=== PATIENT | female | born 1970 | race Caucasian/White ===

== ENCOUNTER 2024-07-16 12:05 | Outpatient (CLI) | payer OTHER, SELFPAY ==
[2024-07-16 12:38] LABS: Basophils Absolute Auto 0.04 K/mm3 (0.00-0.10); Basophils Percent Auto 0.6 % (0.0-1.0); Eosinophils Absolute Auto 0.32 K/mm3 (0.02-0.50); Eosinophils Percent Auto 5.1 % (1.0-6.0); Hemoglobin 11.8 g/dL (12.0-15.0); Immature Granulocyte Absolute 0.01 K/mm3 (0.00-0.00); Immature Granulocyte Percent A 0.2 % (0.0-0.0); Lymphocytes Absolute Auto 1.94 K/mm3 (1.10-4.50); Lymphocytes Percent Auto 31.1 % (18.0-42.0); Mean Corpuscular HGB Conc 31.9 g/dL (32-36); Mean Corpuscular Hemoglobin 24.5 pg (27.0-31.0); Mean Corpuscular Volume 76.9 fL (78.0-102.0); Mean Platelet Volume 9.3 fl (9.2-11.8); Monocytes Absolute Auto 0.39 K/mm3 (0.10-0.90); Monocytes Percent Auto 6.3 % (2.0-11.0); Neutrophils Absolute Auto 3.53 K/mm3 (1.70-7.20); Neutrophils Percent Auto 56.7 % (50.0-70.0); Platelet Count Result 339 K/mm3 (150-420); Red Blood Count 4.81 M/mm3 (4.20-5.40); White Blood Count 6.2 K/mm3 (4.8-10.8)
[2024-07-16 12:39] LABS: Alanine Aminotransferase 23 U/L (14-59); Albumin Level 3.5 g/dL (3.4-5.0); Alkaline Phosphatase 69 U/L (46-116); Anion Gap 7 mmol/L (4-12); Aspartate Amino Transferase 21 U/L (15-37); Bilirubin,Total 0.4 mg/dL (0.00-1.00); Blood Urea Nitrogen 12 mg/dL (7-18); Calcium 9.2 mg/dL (8.5-10.1); Carbon Dioxide 30 mmol/L (21-32); Chloride 101 mmol/L (98-108); Estimated Glomerular Filt Rate > 60; Glucose 100 mg/dL (70-99); Iron 38 ug/dL (50-170); Osmolality Calculated 285 mOsm/kg (285-295); Percent Iron Saturation 10 % (12-57); Potassium 3.5 mmol/L (3.5-5.1); Sodium 138 mmol/L (136-145); Total Protein 7.2 g/dL (6.4-8.2)
[2024-07-16 12:43] LABS: Troponin I < 4.0 ng/L (0.00-60.4)
== END 2024-07-16 12:06 | disposition home or self-care (01) ==
LOC: CHSLAB 12:08
PROVIDERS: PCP Nurse Practitioner Family; Visit Provider Nurse Practitioner Family
DX: D64.9 Anemia, unspecified (principal); R42 Dizziness and giddiness
CPT/HCPCS: 36415; 80053; 83540; 83550; 84484; 85025

== ENCOUNTER 2024-07-24 10:02 | Outpatient (CLI) | payer OTHER, SELFPAY ==
--- NOTE | 2024-07-24 10:20 | PC.NURSE ---
Here for OP infusion
[2024-07-24 10:34] VITALS: BMI 30.9
[2024-07-24 10:45] VITALS: BP 121/90; PULSE 97; RESP 18; TEMP 36.1
[2024-07-24] MEDS: IRON SUCROSE COMPLEX 300 MG in SODIUM CHLORIDE 0.9% IV 250 ML 125 MG IVPB (10:50)
[2024-07-24 13:00] VITALS: BP 120/83; PULSE 94; RESP 18; TEMP 36.1
--- NOTE | 2024-07-24 13:11 | PC.NURSE ---
discharge home, no complaints, tolerated infusion well, saline lock removed intact, given ecucation on iron infusion, no questions upon discharge home
== END 2024-07-24 10:03 | disposition home or self-care (01) ==
PROVIDERS: PCP Nurse Practitioner Family; Visit Provider Nurse Practitioner Family
DX: D50.9 Iron deficiency anemia, unspecified (principal)
CPT/HCPCS: 96365; 96366; J1756; J7050

== ENCOUNTER 2024-08-02 10:24 | Outpatient (CLI) | payer OTHER, SELFPAY ==
[2024-08-02 10:45] VITALS: BP 132/97; PULSE 78; RESP 16; TEMP 36; O2SAT 100; BMI 30.2
--- NOTE | 2024-08-02 11:00 | PC.NURSE ---
Patient here for IV venofer. Tolerated IV start well, sitting up in chair resting. Call light and belongings provided. Pharmacy aware patient is here, working on medication.
[2024-08-02] MEDS: IRON SUCROSE COMPLEX 300 MG in SODIUM CHLORIDE 0.9% IV 250 ML 125 MG IVPB (11:22)
--- NOTE | 2024-08-02 13:25 | PC.NURSE ---
Patient tolerated IV Infusion well. No adverse reactions noted. IV site removed, tip intact. Dressing applied to site. Patient denies any questions at discharge, left floor ambulatory.
== END 2024-08-02 13:35 | disposition home or self-care (01) ==
PROVIDERS: PCP Nurse Practitioner Family; Visit Provider Nurse Practitioner Family
DX: D50.9 Iron deficiency anemia, unspecified (principal)
CPT/HCPCS: 96365; 96366; J1756; J7050

== ENCOUNTER 2024-08-08 09:41 | Outpatient (CLI) | payer OTHER, SELFPAY ==
[2024-08-08 09:56] LABS: Basophils Absolute Auto 0.05 K/mm3 (0.00-0.10); Basophils Percent Auto 0.8 % (0.0-1.0); Eosinophils Absolute Auto 0.25 K/mm3 (0.02-0.50); Eosinophils Percent Auto 4.2 % (1.0-6.0); Hematocrit 38.7 % (35.0-49.0); Hemoglobin 12.6 g/dL (12.0-15.0); Immature Granulocyte Absolute 0.01 K/mm3 (0.00-0.00); Immature Granulocyte Percent A 0.2 % (0.0-0.0); Lymphocytes Absolute Auto 1.61 K/mm3 (1.10-4.50); Lymphocytes Percent Auto 27.1 % (18.0-42.0); Mean Corpuscular HGB Conc 32.6 g/dL (32-36); Mean Corpuscular Hemoglobin 25.7 pg (27.0-31.0); Mean Platelet Volume 9.3 fl (9.2-11.8); Monocytes Absolute Auto 0.26 K/mm3 (0.10-0.90); Monocytes Percent Auto 4.4 % (2.0-11.0); Neutrophils Absolute Auto 3.77 K/mm3 (1.70-7.20); Neutrophils Percent Auto 63.3 % (50.0-70.0); Platelet Count Result 302 K/mm3 (150-420); Red Cell Distribution Width 19.7 % (11.6-14.4)
[2024-08-08 10:23] LABS: Iron 86 ug/dL (50-170); Percent Iron Saturation 25 % (12-57)
== END 2024-08-08 09:42 | disposition home or self-care (01) ==
PROVIDERS: PCP Nurse Practitioner Family; Visit Provider Nurse Practitioner Family
DX: D64.9 Anemia, unspecified (principal)
CPT/HCPCS: 36415; 83540; 83550; 85025

== ENCOUNTER 2024-08-13 09:48 | Outpatient (CLI) | payer OTHER, SELFPAY ==
--- NOTE | ~2024-08-13 | MM_ITS ---
EXAMINATION: MM screening emili BI w trina HISTORY: Screening mammogram TECHNIQUE: Craniocaudal and mediolateral oblique 3-D tomosynthesis images were obtained and synthetic 2-D images were generated. CAD analysis was submitted and interpreted. COMPARISON: 06/15/2021 BREAST PARENCHYMAL COMPOSITION:Not Dense. There are scattered areas of fibroglandular density. FINDINGS: No suspicious mass, calcification, or architectural distortion are identified in either forest ast to suggest malignancy. There has been no suspicious interval change. IMPRESSION: No mammographic evidence of malignancy. Recommend routine screening mammography in one year. BI-RADS Category 1: Negative Reviewed, dictated and finalized at location . IOLOGY ASSOCIATE
== END 2024-08-13 09:49 | disposition home or self-care (01) ==
PROVIDERS: PCP Nurse Practitioner Family; Visit Provider Nurse Practitioner Family
DX: Z12.31 Encounter for screening mammogram for malignant neoplasm of breast (principal)
CPT/HCPCS: 77063; 77067

== ENCOUNTER 2024-10-25 12:55 | Outpatient (CLI) | payer OTHER, SELFPAY ==
--- NOTE | ~2024-10-25 | US_ITS ---
US pelvic complete w TV Ordering provider: Toshia Campos APRN History: . N92.0 - Excessive and frequent menstruation with regular ... . Comparison: None. Technique: Transabdominal and endovaginal ultrasound of the pelvis (Doppler ultrasound interrogation techniques used as needed for this exam.) FINDINGS: CERVIX: Normal. UTERUS: Measures 8.8x 4.5x 4.1 cm in length which is within normal limits and is anteverted. No myom etrial masses. ENDOMETRIUM: Normal in thickness measuring 8.1 mm. No endometrial masses, cysts or fluid. CUL DE SAC: No free fluid. RIGHT OVARY: Normal in size measuring 2.7x 1.7x 1.7 cm. Normal echotexture. Doppler vascular flow pre sent. Calcification is seen inside the ovary measuring 4 x 3 mm.. LEFT OVARY: Not demonstrated. ADNEXA: Normal. No mass. IMPRESSION: Calcification in the right ovary most likely benign. The left is not demonstrated. Otherwise, normal pelvic ultrasound. Reviewed, dictated and finalized at location A. IMPRESSION: Calcification in the right ovary most likely benign. The left is not demonstrat ed. Otherwise, normal pelvic ultrasound.
--- OUTSIDE RECORDS SUMMARY | 2024-10-25 13:00 | XMS_ITS | Encounter Summary ---
Author Organization [facility] Address [address] [place] [address] Care Team Providers Care Welding Foreman Name Role Phone Abiodun Cifuentes MD Primary Care Provider [phone] Encounter Details Date Type Department Care Team (Late st Contact Info) Description 09/13/2022 Silver Lining Solutionst Message Enc [facility] [address], [facility] 1 [place] [address] Fabiano Mckenzie MD [address] [place] [address] Visit Follow Up Social History Tobacco Use Types Packs/Day Years Used Date Smoking Tobacco: Never Smokeless Tobacco: Never Alcohol Use Standard Drinks/Week Comments Yes 0 (1 standard drink = 0.6 oz pur e alcohol) Comments Unknown Sex and Gender Information Value Date Recorded Sex Assigned at Not on file Legal Sex Female 5:53 PM CDT Gender Identity Not on file Sexual Orientation Not on file COVID-19 Exposure Response Date Recorded In the last 10 days, have yo u been in contact with someone who was confirmed or suspected to have Coronavirus/COVID-19? No / Unsure 09/13/2022 2:32 PM BALANCE TRUING INSPECTOR documented as of this encounter Plan of Treatment Not on file documented as of this encounter Visit Diagnoses Not on filedocumented in this encounter Care Teams Welding Foreman Relationship Specialty Start [place] [address] [place] [address] [place] [address] PCP - General FAMILY PRACTICE 08/24/22 documented as of this encounter
--- OUTSIDE RECORDS SUMMARY | 2024-10-25 13:00 | XMS_ITS | Clinical Summary ---
Author Organization [facility] Address [address] [address] [place] [address] Phone Care Team Providers Care Optical Engineering Technician Name Role Phone [facility], External Provider Primary Care Provider U navailable Social History Tobacco Use Types Packs/Day Years Used Date Smoking Tobacco: Never Assessed Comments Unknown Sex and Gender Information Value Date Recorded Sex Assigned at Not on file Legal Sex Female 4:12 AM ABORIGINAL LIAISON OFFICER Gender Identity Not on file Sexual Orientation Not on file Plan of Treatment Health Maintenance Due Date Last Done Comments DTAP/TDAP/TD VACCINES (1 - Tdap) 1991 HEPATITIS B VACCINES (1 of 3 - 19+ 3-dose series) 1991 CERVICAL CANCER SCREENING 2002 BREAST CANCER SCREENING 2012 COLORECTAL SCREENING 2017 Colorectal Cancer Screening 2017 FIT-DNA Q 3 years 2017 FIT/FOBT Q 1 year 2017 Flex Sig/CT Colonography Q 5 years 2017 ZOSTER VACCINE (1 of 2) 2022 INFLUENZA VACCINE (#1) 2024 PNEUMOCOCCAL VACCINE 0-49 YEARS Aged Out No longer eligible based on patient's age to complete this topic Insurance [facility] [id number] Care Teams Optical Engineering Technician Relationship Specialty Start Date End Date [facility], External Provider [address] [place] [address] PCP - General 02/25/14
--- OUTSIDE RECORDS SUMMARY | 2024-10-25 13:00 | XMS_ITS | Encounter Summary ---
Author Organization [facility] Address [address] [place] [address] Care Team Providers Care Program Schedule Clerk Name Role Phone Abiodun Cifuentes MD Primary Care Provider [phone]- [phone] Encounter Details Date Type Department Care Team (Late st Contact Info) Description 01/19/2019 Abstract SFL CONVERSION [address] [place] [address] , Generic Conversion, Social History Tobacco Use Types Packs/Day Years Used Date Smoking Tobacco: Never Assessed Comments Unknown Sex and Gender Information Value Date Recorded Sex Assigned at Not on file Legal Sex Female 5:53 PM CDT Gender Identity Not on file Sexual Orientation Not on file documented as of this encounter Plan of Treatment Not on file documented as of this encounter Visit Diagnoses Not on filedocumented in this encounter Care Teams Program Schedule Clerk Relationship Specialty Start Date End Date Abiodun Cifuentes MD [address] [place] [id number] PCP - General FAMILY PRACTICE 08/24/22 documented as of this encounter
--- OUTSIDE RECORDS SUMMARY | 2024-10-25 13:00 | XMS_ITS | Clinical Summary ---
Author Organization [facility] Address [facility] [place] [address] Care Team Providers Care Ip Architect Name Role Phone Abiodun Cifuentes MD Primary Care Provider [phone] [phone] Allergies Active Allergy Reactions Criticality Noted Date Comments Nitrofurantoin Rash Low 06/24/2016 Medications chlorthalidone (HYGROTEN) 25 MG tablet Take 1 tablet by mouth daily. 04/14/2022 Active clonazePAM (KLONOPIN) 0.5 MG tablet Take 1 tablet by mouth as needed. 05/19/2022 Active irbesartan (AVAPRO) 300 MG tablet Take 1 tablet by mouth daily. 08/26/2022 Active metoprolol tartrate (LOPRESSOR) 50 MG tablet Take 1 tablet by mouth daily. 08/26/2022 Active Active Problems Problem Noted Date Diagnosed Date Trochanteric bursitis, right hip 09/13/2022 Family History Medical History Relation Comments Arthritis Father Diabetes Father Hypertension Father COPD Mother Relation Status Comments Father Mother Social History Tobacco Use Types Packs/Day Years Used Date Smoking Tobacco: Never Smokeless Tobacco: Never Alcohol Use Standard Drinks/Week Comments Yes 0 (1 standard drink = 0.6 oz pur e alcohol) Comments Unknown Sex and Gender Information Value Date Recorded Sex Assigned at Not on file Legal Sex Female 5:53 PM CDT Gender Identity Not on file Sexual Orientation Not on file Last Filed Vital Signs Vital Sign Reading Time Taken Comments Blood Pressure 157/114 06/24/2016 1:59 PM EMPLOYEE BENEFITS MANAGER Pulse 76 06/24/2016 1:59 PM EMPLOYEE BENEFITS MANAGER Temperature - - Respiratory Rate - - Oxygen Saturation - - Inhaled Oxygen Concentration - - Weight 77.1 kg (170 lb) 09/13/2022 2:34 PM EMPLOYEE BENEFITS MANAGER Height 154.9 cm (5' 1 ) 09/13/2022 2:34 PM EMPLOYEE BENEFITS MANAGER Body Mass Index 32.12 09/13/2022 2:34 PM EMPLOYEE BENEFITS MANAGER Plan of Treatment Health Maintenance Due Date Last Done Comments Cervical Cancer Screening Pap Smear (Age 30 to 64) Every 3 Years 1972 Colorectal Cancer Screening Colonoscopy (10 Years) 1972 Annual Physical 1975 Hepatitis C 1990 Hepatitis B Vaccines (1 of 3 - 19+ 3-dose series) 1991 Cervical Cancer Screening Pap with HPV Testing (Age 30 to 64) Every 5 Years 2002 Cervical Cancer Screening with HPV 2002 Mammogram Screening 2012 Zoster Vaccines (1 of 2) 2022 DTaP, Tdap and Td Vaccines (2 - Td or Tdap) 03/21/2023 03/21/2013 COVID-19 Vaccine ( season) 2024 12/13/2021, 09/01/2020, 08/11/2020 Influenza Adult (#1) 2024 04/23/2018, 04/30/2015, 03/18/2014, Additional history exists Meningococcal B Vaccine Aged Out No l onger eligible based on patient's age to complete this topic Meningococcal Vaccine Aged Out No aicha sheyla eligible based on patient's age to complete this topic Pneumococcal Vaccine: Pediatrics (0 to 5 Years) and At-Risk Patients (6 to 64 Years) Aged Out No longer eligible based on patient's age to complete this topic RSV Immunizations Under 20 Months Aged Out No longer eligible based on patient's age to complete this topic Insurance [facility] Care Teams Ip Architect Relationship Specialty Start [place] [address] [place] [address] [place] [address] PCP - General FAMILY PRACTICE 08/24/22
== END 2024-10-25 12:56 | disposition home or self-care (01) ==
LOC: CHSIMG 12:56
PROVIDERS: PCP Nurse Practitioner Family; Visit Provider Nurse Practitioner Obstetrics & Gynecology
DX: N92.0 Excessive and frequent menstruation with regular cycle (principal); N83.8 Other noninflammatory disorders of ovary, fallopian tube and broad ligament
CPT/HCPCS: 76830; 76856

== ENCOUNTER 2024-10-30 10:08 | Outpatient (CLI) | payer OTHER, SELFPAY ==
--- OUTSIDE RECORDS SUMMARY | 2024-10-30 11:30 | XMS_ITS | Encounter Summary ---
Author Organization [facility] Address [address] [place] [address] Care Team Providers Care Bench Worker Apprentice Name Role Phone Abiodun Cifuentes MD Primary Care Provider Encounter Details Date Type Department Care Team (Late st Contact Info) Description 09/13/2022 MobileSnackt Message Enc [facility] [address], [facility] 1 [place] [address] Fabiano Mckenzie MD [address] [place] [address] Visit Follow Up Social History Tobacco [...] Coronavirus/COVID-19? No / Unsure 09/13/2022 2:32 PM ORGAN INSTALLER documented as of this encounter Plan of Treatment Not on file documented as of this encounter Visit Diagnoses Not on filedocumented in this encounter Care Teams Bench Worker Apprentice Relationship Specialty Start [place] [address] [place] [address] [place] [address] PCP - General FAMILY PRACTICE 08/24/22 documented as of this encounter
--- OUTSIDE RECORDS SUMMARY | 2024-10-30 11:30 | XMS_ITS | Encounter Summary ---
Author Organization [facility] Address [address] [place] [address] Care Team Providers Care Professional Volleyball Player Name Role Phone Abiodun Cifuentes MD Primary Care Provider [phone]- [phone] Encounter Details Date Type Department Care Team (Late st Contact Info) Description 01/19/2019 Abstract SFL CONVERSION [address] [place] [address] , Generic Conversion, Social History Tobacco Use [...] on filedocumented in this encounter Care Teams Professional Volleyball Player Relationship Specialty Start Date End Date Abiodun Cifuentes MD [address] [place] [phone] PCP - General FAMILY PRACTICE 08/24/22 documented as of this encounter
--- OUTSIDE RECORDS SUMMARY | 2024-10-30 11:30 | XMS_ITS | Clinical Summary ---
Author Organization [facility] Address [facility] [place] [address] Care Team Providers Care Hairspring Adjuster Name Role Phone Abiodun Cifuentes MD Primary Care Provider [phone] [phone] Allergies Active Allergy Reactions Criticality Noted Date [...] Comments Blood Pressure 157/114 06/24/2016 1:59 PM PRODUCTION SUPERVISOR OFF SHIFT Pulse 76 06/24/2016 1:59 PM PRODUCTION SUPERVISOR OFF SHIFT Temperature - - Respiratory Rate - - Oxygen Saturation - - Inhaled Oxygen Concentration - - Weight 77.1 kg (170 lb) 09/13/2022 2:34 PM PRODUCTION SUPERVISOR OFF SHIFT Height 154.9 cm (5' 1 ) 09/13/2022 2:34 PM PRODUCTION SUPERVISOR OFF SHIFT Body Mass Index 32.12 09/13/2022 2:34 PM PRODUCTION SUPERVISOR OFF SHIFT Plan of Treatment Health Maintenance Due Date [...] patient's age to complete this topic Insurance [facility] Care Teams Hairspring Adjuster Relationship Specialty Start [place] [address] [place] [address] [place] [address] PCP - General FAMILY PRACTICE 08/24/22
--- OUTSIDE RECORDS SUMMARY | 2024-10-30 11:30 | XMS_ITS | Clinical Summary ---
Author Organization [facility] Address [address] [address] [place] [address] Phone Care Team Providers Care Apparel Embroidery Digitizer Name Role Phone [facility], External Provider Primary Care Provider U navailable Social History Tobacco Use Types Packs/Day Years Used Date Smoking Tobacco: Never Assessed Comments Unknown Sex and Gender Information Value Date Recorded Sex Assigned at Not on file Legal Sex Female 4:12 AM HOT MILL SHEARER Gender Identity Not on file Sexual Orientation [...] patient's age to complete this topic Insurance [facility] [id number] Care Teams Apparel Embroidery Digitizer Relationship Specialty Start Date End Date [facility], External Provider [address] [place] [address] PCP - General 02/25/14
[2024-11-01 04:53] LABS: CA-125 12 U/mL (<35)
== END 2024-10-30 10:09 | disposition home or self-care (01) ==
PROVIDERS: PCP Nurse Practitioner Family; Visit Provider Nurse Practitioner Obstetrics & Gynecology
DX: N83.8 Other noninflammatory disorders of ovary, fallopian tube and broad ligament (principal); R19.09 Other intra-abdominal and pelvic swelling, mass and lump
CPT/HCPCS: 36415; 86304

== ENCOUNTER 2025-02-06 14:36 | Outpatient (CLI) | payer OTHER, SELFPAY ==
[2025-02-06 14:50] LABS: Hematocrit 40.7 % (35.0-49.0); Hemoglobin 13.8 g/dL (12.0-15.0); Mean Corpuscular HGB Conc 33.9 g/dL (32-36); Mean Corpuscular Hemoglobin 29.7 pg (27.0-31.0); Mean Corpuscular Volume 87.5 fL (78.0-102.0); Mean Platelet Volume 8.9 fl (9.2-11.8); Platelet Count Result 300 K/mm3 (150-420); Red Blood Count 4.65 M/mm3 (4.20-5.40); Red Cell Distribution Width 12.4 % (11.6-14.4)
== END 2025-02-06 14:37 | disposition home or self-care (01) ==
LOC: CHSLAB 14:38
PROVIDERS: PCP Nurse Practitioner Family; Visit Provider Obstetrics & Gynecology
DX: N95.1 Menopausal and female climacteric states (principal); D64.9 Anemia, unspecified
CPT/HCPCS: 36415; 82672; 83001; 85027

== ENCOUNTER 2025-04-29 15:55 | Outpatient (CLI) | payer OTHER, SELFPAY ==
--- OUTSIDE RECORDS SUMMARY | 2025-01-16 10:00 | XMS_ITS ---
Author Organization [facility] [employer] [facility] Address [facility] [facility] [address] [place] [address] Care Team Providers Care Truck Driver Helper Name Role Phone Simeon Gillette Primary Care Provider Nusrat Evans Unavailable [phone] Keara Sherman Unavailable [phone] REASON FOR VISIT Therapy Visit Social History Sex Assigned At : Social History Observation Description Sex Assigned At Female Encounters Encounter Location Date Provider Diagnosis [facility] [employer] [address] [address] 01/16/2025 Keara Sherman Plan Of Treatment No Information Progress Notes * Nicolasa LONGODOB:1970 (55 yo F)Acc No.[id number]:01/16/2025 Patient: Enio edvinirvinNicolasa Provider: Keith SHERMAN LCSW :1970 A ge:54 Y S ex:Female Date:01/16/2025 Address:[address] [place] [address] Pcp:Simeon BARNES Data: * Chief Complaints: * T herapy Visit * Electronic signature of Karen Sherman LCSW on 04/29/2025 at 04:48 PM CDT Sign off status: Pending Signatures: No Ad Hoc Signature Added * Provider: Keith SHERMAN LCSW Date: 0 01/16/2025 Generated for Printi ng/Fadaisha/eTransmitting on: 0 04/29/2025 04:48 PM CDT
--- OUTSIDE RECORDS SUMMARY | 2025-01-23 11:00 | XMS_ITS ---
Author Organization [facility] [employer] [facility] Address [facility] [facility] [address] [place] [address] Care Team Providers Care Decaler Name Role Phone Simeon Gillette Primary Care Provider Nusrat Evans Unavailable [phone] Keara Sherman Unavailable [phone] REASON FOR VISIT Therapy Visit Social History Sex Assigned At : Social History Observation Description Sex Assigned At Female Encounters Encounter Location Date Provider Diagnosis [facility] [employer] [place] [address] [address] 01/23/2025 Keara Sherman Plan Of Treatment No Information Progress Notes * Nicolasa LONGODOB:1970 (55 yo F)Acc No.[id number]:01/23/2025 Patient: Enio Nicolasa reinoso Provider: Keith SHERMAN LCSW :1970 A ge:54 Y S ex:Female Date:01/23/2025 Address:[address] [place] [address] Pcp:Simeon BARNES Data: * Chief Complaints: * T herapy Visit * Electronic signature of Karen Sherman LCSW on 04/29/2025 at 04:48 PM CDT Sign off status: Pending Signatures: No Ad Hoc Signature Added * Provider: Keith SHERMAN LCSW Date: 0 01/23/2025 Generated for Printi ng/Fadaisha/eTransmitting on: 0 04/29/2025 04:48 PM CDT
--- OUTSIDE RECORDS SUMMARY | 2025-01-30 11:00 | XMS_ITS ---
Author Organization [facility] [employer] [facility] Address [facility] [address] [facility] [address] [place] [address] Care Team Providers Care Alumni Relations Officer Name Role Phone Simeon Gillette Primary Care Provider Nusrat Evans Unavailable [phone] Keara Sherman Unavailable [phone] REASON FOR VISIT Therapy Visit Social History Sex Assigned At : Social History Observation Description Sex Assigned At Female Encounters Encounter Location Date Provider Diagnosis [facility] [employer] [place] [address] [address] 01/30/2025 Keara Sherman Plan Of Treatment No Information Progress Notes * Nicolasa LONGODOB:1970 (55 yo F)Acc No.[id number]:01/30/2025 Patient: Enio Nicolasa reinoso Provider: Keith SHERMAN LCSW :1970 A ge:54 Y S ex:Female Date:01/30/2025 Address:[address] [place] [address] Pcp:Simeon BARNES Data: * Chief Complaints: * T herapy Visit * Electronic signature of Karen Sherman LCSW on 04/29/2025 at 04:48 PM CDT Sign off status: Pending Signatures: No Ad Hoc Signature Added * Provider: Keith SHERMAN LCSW Date: 0 01/30/2025 Generated for Printi ng/Fadaisha/eTransmitting on: 0 04/29/2025 04:48 PM CDT
--- OUTSIDE RECORDS SUMMARY | 2025-02-07 09:45 | XMS_ITS ---
Author Organization [facility] [employer] [facility] Address [facility] [address] [place] [address] Care Team Providers Care Allergy Nurse Name Role Phone Simeon Gillette Primary Care Provider Nusrat Evans Unavailable [phone] REASON FOR VISIT 1 month f/u Social History Sex Assigned At : Social History Observation Description Sex Assigned At Female Encounters Encounter Location Date Provider Diagnosis [facility] [employer] [place] [address] [address] [place] [address] 02/07/2025 Nusrat Kaufman Plan Of Treatment No Information Progress Notes * Nicolasa LONGODOB:1970 (55 yo F)Acc No.[id number]:02/07/2025 Patient: Enio Nicolasa reinoso Provider: Caprice Kaufman :1970 A ge:54 Y S ex:Female Date:02/07/2025 Address:[address] [place], [place] Pcp:Simeon BARNES Subjective: * Chief Complaints: * 1 month f/u * Electronic signature of Joshua Kaufman on 04/29/2025 at 04:48 PM CDT Sign off status: Pending * Provider: Caprice Kaufman Date: 0 02/07/2025 Generated for Saleem ng/Faxing/eTransmitting on: 0 04/29/2025 04:48 PM CDT
[2025-04-29 16:11] LABS: Hematocrit 40.5 % (35.0-49.0); Hemoglobin 13.6 g/dL (12.0-15.0); Immature Granulocyte Percent A 0.3 % (0.0-0.0); Lymphocytes Absolute Auto 1.84 K/mm3 (1.10-4.50); Mean Corpuscular HGB Conc 33.6 g/dL (32-36); Mean Corpuscular Hemoglobin 29.1 pg (27.0-31.0); Mean Corpuscular Volume 86.7 fL (78.0-102.0); Nucleated Red Blood Cells Absolute Auto 0.00 K/mm3 (0.00-0.00); Nucleated Red Blood Cells Perc 0.0 % (0-0.0); Platelet Count Result 310 K/mm3 (150-420); Red Blood Count 4.67 M/mm3 (4.20-5.40); White Blood Count 7.5 K/mm3 (4.8-10.8)
[2025-04-29 16:33] LABS: Iron 52 ug/dL (37-170)
[2025-04-29 16:34] LABS: Alanine Aminotransferase 27 U/L (6-35); Albumin Level 4.2 g/dL (3.5-5.1); Alkaline Phosphatase 70 U/L (38-126); Anion Gap 10 mmol/L (4-12); Aspartate Amino Transferase 29 U/L (14-36); Bilirubin,Total 0.3 mg/dL (0.2-1.3); Blood Urea Nitrogen 19 mg/dL (7-17); Calcium 9.4 mg/dL (8.4-10.2); Carbon Dioxide 30 mmol/L (22-30); Chloride 104 mmol/L (98-107); Estimated Glomerular Filt Rate > 60; Glucose 95 mg/dL (65-110); Osmolality Calculated 300 mOsm/kg (285-295); Potassium 3.5 mmol/L (3.4-5.0); Sodium 144 mmol/L (137-145); Total Protein 7.3 g/dL (6.3-8.2)
[2025-04-29 16:41] LABS: Percent Iron Saturation 17 % (20-50)
--- OUTSIDE RECORDS SUMMARY | 2025-04-29 16:48 | XMS_ITS | Encounter Summary ---
Author Organization [facility] Address [address] [place] [address] Care Team Providers Care Educational Adviser Name Role Phone Abiodun Cifuentes MD Primary Care Provider [phone] Encounter Details Date Type Department Care Team (Late st Contact Info) Description 01/19/2019 Abstract SFL CONVERSION [address] [place] [address] , Generic Conversion, Social History Tobacco Use [...] on filedocumented in this encounter Care Teams Educational Adviser Relationship Specialty Start Date End Date Abiodun Cifuentes MD [address] [place] [id number] PCP - General FAMILY PRACTICE 08/24/22 documented as of this encounter
--- OUTSIDE RECORDS SUMMARY | 2025-04-29 16:48 | XMS_ITS | Clinical Summary ---
Author Organization [facility] Address [place] [address] Care Team Providers Care Women'S Health Care Nurse Practitioner Name Role Phone Abiodun Cifuentes MD Primary Care Provider [phone] Allergies Active Allergy Reactions Criticality Noted Date [...] Comments Blood Pressure 157/114 06/24/2016 1:59 PM SKILLED LABOR Pulse 76 06/24/2016 1:59 PM SKILLED LABOR Temperature - - Respiratory Rate - - Oxygen Saturation - - Inhaled Oxygen Concentration - - Weight 77.1 kg (170 lb) 09/13/2022 2:34 PM SKILLED LABOR Height 154.9 cm (5' 1) 09/13/2022 2:34 PM SKILLED LABOR Body Mass Index 32.12 09/13/2022 2:34 PM SKILLED LABOR Plan of Treatment Health Maintenance Due Date Last Done Comments Cervical Cancer Screening Pa p Smear (Age 30 to 64) Every 3 Years 1972 Colorectal Cancer Screening Colonoscopy (10 Years) 1972 Annual Physical 1975 Hepatitis C 1990 Hepatitis B Vaccines (1 of 3 - 19+ 3-dose series) 1991 Cervical Cancer Screening Pa p with HPV Testing (Age 30 to 64) Every 5 Years 2002 Cervical Cancer Screening wi th HPV 2002 Mammogram Screening 2012 Pneumococcal Vaccine: 50+ Years (1 of 1 - PCV) 2022 Zoster Vaccines (1 of 2) 2022 DTaP, Tdap and Td Vaccines ( 2 - Td or Tdap) 03/21/2023 03/21/2013 COVID-19 Vaccine (4 - 2024-2 6 season) 2025 12/13/2021, 09/01/2020, 08/11/2020 Meningococcal B Vaccine Aged Out No l onger eligible based on patient's age to complete this topic Meningococcal Vaccine Aged Out No aicha sheyla eligible based on patient's age to complete this topic RSV Immunizations Under 20 Months Aged Out No longer eligible b ased on patient's age to complete this topic Insurance [facility] Care Teams Women'S Health Care Nurse Practitioner Relationship Specialty [place] [address] [place], [place] [address] [place] [address] PCP - General FAMILY PRACTICE 08/24/22
--- OUTSIDE RECORDS SUMMARY | 2025-04-29 16:48 | XMS_ITS | Clinical Summary ---
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 Gender Identity Not on file Sexual Orientation Not on file Plan of Treatment Health Maintenance Due Date Last Done Comments DTAP/TDAP/TD VACCINES (1 - Tdap) 1991 HEPATITIS B VACCINES (1 of 3 - 19+ 3-dose series) 02/11 HPV/Cotest (21-29) 1993 CERVICAL CANCER SCREENING 2002 HPV/Cotest (30-65) 2002 PAP SMEAR 2002 BREAST CANCER SCREENING 2012 COLORECTAL SCREENING 2017 Colorectal Cancer Screening 2017 FIT-DNA Q 3 years 2017 FIT/FOBT Q 1 year 2017 Flex Sig/CT Colonography Q 5 years 2017 ZOSTER VACCINE (1 of 2) 2022 INFLUENZA VACCINE (#1) 2025 Insurance [facility] PPO [id number] Care Teams Forestry Scientist Relationship Specialty Start Date End Date [facility], External Provider [address] [place] [address] PCP - General 02/25/14
--- OUTSIDE RECORDS SUMMARY | 2025-04-29 16:48 | XMS_ITS | Encounter Summary ---
Author Organization [facility] Address [address] [place] [address] Care Team Providers Care Marketing Ambassador Name Role Phone Abiodun Cifuentes MD Primary Care Provider [phone] Encounter Details Date Type Department Care Team (Late st Contact Info) Description 09/13/2022 AirD[employer]st Message Enc [facility] [address], [facility] [address] [place] [address] Fabiano Mckenzie MD [address] [place] [address] Visit Follow Up Social History Tobacco [...] Coronavirus/COVID-19? No / Unsure 09/13/2022 2:32 PM POWER ELECTRONICS ENGINEER documented as of this encounter Plan of Treatment Not on file documented as of this encounter Visit Diagnoses Not on filedocumented in this encounter Care Teams Marketing Ambassador Relationship Specialty Start [place] [address] [place] [address] [place] [address] PCP - General FAMILY PRACTICE 08/24/22 documented as of this encounter
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
[2025-04-29 17:08] LABS: Ferritin 72.50 ng/mL (11.1-264)
== END 2025-04-29 15:56 | disposition home or self-care (01) ==
LOC: CHSLAB 15:56
PROVIDERS: PCP Nurse Practitioner Family; Visit Provider Nurse Practitioner Family
DX: R42 Dizziness and giddiness (principal); D50.9 Iron deficiency anemia, unspecified
CPT/HCPCS: 36415; 80053; 82728; 83540; 83550; 85025

== ENCOUNTER 2025-05-15 14:10 | Outpatient (CLI) | payer OTHER, SELFPAY ==
--- OUTSIDE RECORDS SUMMARY | 2025-01-16 10:00 | XMS_ITS ---
Author Organization [facility] [employer] [facility] Address [facility] [facility] [address] [place] [address] Care Team Providers Care Trash Hauler Name Role Phone Simeon Gillette Primary Care Provider Nusrat Evans Unavailable [phone] Keara Sherman Unavailable [phone] REASON FOR VISIT Therapy Visit Social History Sex Assigned At : Social History Observation Description Sex Assigned At Female Encounters Encounter Location Date Provider Diagnosis [facility] Number [address] [address] 01/16/2025 Keara Sherman Plan Of Treatment No Information Progress Notes * Nicolasa LONGODOB:1970 (55 yo F)Acc No.[id number]:01/16/2025 Patient: Enio reinosoNicolasa Provider: Keith SHERMAN LCSW :1970 A ge:54 Y S ex:Female Date:01/16/2025 Address:[address] [place] [address] Pcp:Simeon BARNES Data: * Chief Complaints: * T herapy Visit * Electronic signature of Karen Sherman LCSW on 05/15/2025 at 02:13 PM CDT Sign off status: Pending Signatures: No Ad Hoc Signature Added * Provider: Keith SHERMAN LCSW Date: 0 01/16/2025 Generated for Saleem rodriguez/Rylan/eTransmitting on: 1 02:13 PM CDT
--- OUTSIDE RECORDS SUMMARY | 2025-01-23 11:00 | XMS_ITS ---
Author Organization [facility] Address [facility] [facility] [address] [place] [address] Care Team Providers Care Packager And Strapper Name Role Phone Simeon Gillette Primary Care Provider Nusrat Evans Unavailable [phone] Keara Sherman Unavailable [phone] REASON FOR VISIT Therapy Visit Social History Sex Assigned At : Social History Observation Description Sex Assigned At Female Encounters Encounter Location Date Provider Diagnosis [facility] [employer] [place] [address] [address] 01/23/2025 Keara Sherman Plan Of Treatment No Information Progress Notes * Nicolasa LONGODOB:1970 (55 yo F)Acc No.[id number]:01/23/2025 Patient: Enio edvinirvinNicolasa Provider: Keith SHERMAN LCSW :1970 A ge:54 Y S ex:Female Date:01/23/2025 Address:[address] [place] [address] Pcp:Simeon BARNES Data: * Chief Complaints: * T herapy Visit * Electronic signature of Karen Sherman LCSW on 05/15/2025 at 02:14 PM CDT Sign off status: Pending Signatures: No Ad Hoc Signature Added * Provider: Keith SHERMAN LCSW Date: 0 01/23/2025 Generated for Saleem rodriguez/Rylan/eTransmitting on: 1 02:14 PM CDT
--- OUTSIDE RECORDS SUMMARY | 2025-01-30 11:00 | XMS_ITS ---
Author Organization [facility] [facility] Address [facility] [facility] [address] [place] [address] Care Team Providers Care Newsstand Vendor Name Role Phone Simeon Gillette Primary Care Provider Nusrat Evans Unavailable [phone] Keara Sherman Unavailable [phone] REASON FOR VISIT Therapy Visit Social History Sex Assigned At : Social History Observation Description Sex Assigned At Female Encounters Encounter Location Date Provider Diagnosis [facility] [employer] [place] [address] [address] 01/30/2025 Keara Sherman Plan Of Treatment No Information Progress Notes * Nicolasa LONGODOB:1970 (55 yo F)Acc No.[id number]:01/30/2025 Patient: Enio edvinirvinNicolasa Provider: Keith SHERMAN LCSW :1970 A ge:54 Y S ex:Female Date:01/30/2025 Address:[address] [place] [address] Pcp:Simeon BARNES Data: * Chief Complaints: * T herapy Visit * Electronic signature of Karen Sherman LCSW on 05/15/2025 at 02:14 PM CDT Sign off status: Pending Signatures: No Ad Hoc Signature Added * Provider: Keith SHERMAN LCSW Date: 0 01/30/2025 Generated for Saleem rodriguez/Rylan/eTransmitting on: 1 02:14 PM CDT
--- OUTSIDE RECORDS SUMMARY | 2025-02-07 09:45 | XMS_ITS ---
Author Organization [facility] meets [facility] Address [facility] [address] [place] [address] Care Team Providers Care Derrick Boat Operator Name Role Phone Simeon Gillette Primary Care Provider Nusrat Evans Unavailable [phone] REASON FOR VISIT 1 month f/u Social History Sex Assigned At : Social History Observation Description Sex Assigned At Female Encounters Encounter Location Date Provider Diagnosis [facility] [employer] [place] [address] [address] [place] [address] 02/07/2025 Nusrat Kaufman Plan Of Treatment No Information Progress Notes * Nicolasa LONGODOB:1970 (55 yo F)Acc No.[id number]:02/07/2025 Patient: Enio Nicolasa reinoso Provider: Caprice Kaufman :1970 A ge:54 Y S ex:Female Date:02/07/2025 Address:[address] [place], [place] Pcp:Simeon BARNES Subjective: * Chief Complaints: * 1 month f/u * Electronic signature of Joshua Kaufman on 05/15/2025 at 02:14 PM CDT Sign off status: Pending * Provider: Caprice Kaufman Date: 0 02/07/2025 Generated for Saleem ng/Faxing/eTransmitting on: 1 02:14 PM CDT
--- OUTSIDE RECORDS SUMMARY | 2025-05-15 14:14 | XMS_ITS | Clinical Summary ---
Author Organization [facility] Address [facility] [place] [address] Care Team Providers Care Primary Substance Abuse Counselor Name Role Phone Abiodun Cifuentes MD Primary Care Provider [phone] Allergies Active Allergy Reactions Criticality Noted Date [...] Comments Blood Pressure 157/114 06/24/2016 1:59 PM FINISHING MANAGER Pulse 76 06/24/2016 1:59 PM FINISHING MANAGER Temperature - - Respiratory Rate - - Oxygen Saturation - - Inhaled Oxygen Concentration - - Weight 77.1 kg (170 lb) 09/13/2022 2:34 PM FINISHING MANAGER Height 154.9 cm (5' 1) 09/13/2022 2:34 PM FINISHING MANAGER Body Mass Index 32.12 09/13/2022 2:34 PM FINISHING MANAGER Plan of Treatment Health Maintenance Due [...] complete this topic Insurance [facility] Care Teams Primary Substance Abuse Counselor Relationship Specialty Start Date End Date Abiodun Cifuentes MD [address] [place] [address] PCP - General FAMILY PRACTICE 08/24/22
--- OUTSIDE RECORDS SUMMARY | 2025-05-15 14:14 | XMS_ITS | Encounter Summary ---
Author Organization [facility] Address [address] [place] [address] Care Team Providers Care Quality Reviewer Name Role Phone Abiodun Cifuentes MD Primary Care Provider [phone] Encounter Details Date Type Department Care Team (Late st Contact Info) Description 09/13/2022 Williams Furnituret Message Enc [facility] [address], [facility] [address] [place] [address] Fabiano Mckenzie MD [address] [place] [address] Visit Follow Up Social History Tobacco [...] Coronavirus/COVID-19? 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
--- OUTSIDE RECORDS SUMMARY | 2025-05-15 14:14 | XMS_ITS | Encounter Summary ---
Author Organization [facility] Address [address] [place] [address] Care Team Providers Care Final Inspector And Tester Name Role Phone Abiodun Cifuentes MD Primary Care Provider [phone] Encounter Details Date Type Department Care Team (Late st Contact Info) Description 01/19/2019 Abstract SFL CONVERSION [address] [place] [address] , Generic Conversion, Social History Tobacco Use [...] on filedocumented in this encounter Care Teams Final Inspector And Tester Relationship Specialty Start Date End Date Abiodun Cifuentes MD [address] [place] [id number] PCP - General FAMILY PRACTICE 08/24/22 documented as of this encounter
--- OUTSIDE RECORDS SUMMARY | 2025-05-15 14:14 | XMS_ITS | Clinical Summary ---
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
--- NOTE | 2025-05-15 14:22 | ECG_ITS ---
Test Date: 2025-05-15 14:36:04 Measurements Intervals [facility] Rate: 73 P: 17 MA: 179 QRS: -15 QRSD: 85 T: 3 QT: 362 QTc: 399 Interpretive Statements SINUS RHYTHM WITH SINUS ARRHYTHMIA LOW QRS VOLTAGE IN PRECORDIAL LEADS LEFT VENTRICULAR HYPERTROPHY MINIMAL Q WAVES- HIGH LATERAL LEADS POSSIBLE ANTERIOR MYOCARDIAL INFARCTION BASELINE WANDER- V5 ABNORMAL ECG No previous ECG available for comparison Electronically Signed On 05-15-2025 14:54:54 CDT by Amador Smyth D.O.
== END 2025-05-15 14:11 | disposition home or self-care (01) ==
LOC: ANHSURGERY 14:12
PROVIDERS: PCP Nurse Practitioner Family; Visit Provider Obstetrics & Gynecology
DX: R94.31 Abnormal electrocardiogram [ECG] [EKG] (principal); N92.0 Excessive and frequent menstruation with regular cycle; D64.9 Anemia, unspecified; I10 Essential (primary) hypertension
CPT/HCPCS: 36415; 86850; 86900; 86901; 93005

== ENCOUNTER 2025-06-02 10:07 | Outpatient (CLI) | payer OTHER, SELFPAY ==
--- OUTSIDE RECORDS SUMMARY | 2025-01-16 10:00 | XMS_ITS ---
Author Organization [facility] [employer] [facility] Address [facility] [facility] [address] [place] [address] Care Team Providers Care Product Finisher Name Role Phone Simeon Gillette Primary Care Provider Nusrat Evans Unavailable [phone] Keara Sherman Unavailable [phone] REASON FOR VISIT Therapy Visit Social History Sex Assigned At : Social History Observation Description Sex Assigned At Female Encounters Encounter Location Date Provider Diagnosis [facility] [employer] [address] [address] 01/16/2025 Keara Sherman Plan Of Treatment No Information Progress Notes * Nicolasa LONGODOB:1970 (55 yo F)Acc No.[id number]:01/16/2025 Patient: Enio edvinirvinNicolasa Provider: Keith SHERMAN LCSW :1970 A ge:54 Y S ex:Female Date:01/16/2025 Address:[address] [place] [address] Pcp:Simeon BARNES Data: * Chief Complaints: * T herapy Visit * Electronic signature of Karen Sherman LCSW on 06/02/2025 at 11:40 AM CDT Sign off status: Pending Signatures: No Ad Hoc Signature Added * Provider: Keith SHERMAN LCSW Date: 0 01/16/2025 Generated for Justinoi jennifer/Rylan/eTransmitting on: 1 11:40 AM CDT
--- OUTSIDE RECORDS SUMMARY | 2025-01-23 11:00 | XMS_ITS ---
Author Organization [facility] Address [facility] [facility] [address] [place] [address] Care Team Providers Care Upholstery Restorer Name Role Phone Simeon Gillette Primary Care Provider Nusrat Evans Unavailable [phone] Keara Sherman Unavailable [phone] REASON FOR VISIT Therapy Visit Social History Sex Assigned At : Social History Observation Description Sex Assigned At Female Encounters Encounter Location Date Provider Diagnosis [facility] [employer] [place] [place] [address] [address] 01/23/2025 Keara Sherman Plan Of Treatment No Information Progress Notes * Nicolasa LONGODOB:1970 (55 yo F)Acc No.[id number]:01/23/2025 Patient: Enio Nicolasa reinoso Provider: Keith SHERMAN LCSW :1970 A ge:54 Y S ex:Female Date:01/23/2025 Address:[address] [place] [address] Pcp:Simeon BARNES Data: * Chief Complaints: * T herapy Visit * Electronic signature of Karen Sherman LCSW on 06/02/2025 at 11:42 AM CDT Sign off status: Pending Signatures: No Ad Hoc Signature Added * Provider: Keith SHERMAN LCSW Date: 0 01/23/2025 Generated for Justinoi jennifer/Rylan/eTransmitting on: 1 11:42 AM CDT
--- OUTSIDE RECORDS SUMMARY | 2025-01-30 11:00 | XMS_ITS ---
Author Organization [facility] [employer] [facility] Address [facility] [facility] [address] [place] [address] Care Team Providers Care Ticket Collector Or Usher Name Role Phone Simeon Gillette Primary Care Provider Nusrat Evans Unavailable [phone] Keara Sherman Unavailable [phone] REASON FOR VISIT Therapy Visit Social History Sex Assigned At : Social History Observation Description Sex Assigned At Female Encounters Encounter Location Date Provider Diagnosis [facility] [employer] [place] [address] [address] 01/30/2025 Keara Sherman Plan Of Treatment No Information Progress Notes * Nicolasa LONGODOB:1970 (55 yo F)Acc No.[id number]:01/30/2025 Patient: Enio edvinirvinNicolasa Provider: Keith SHERMAN LCSW :1970 A ge:54 Y S ex:Female Date:01/30/2025 Address:[address] [place] [address] Pcp:Simeon BARNES Data: * Chief Complaints: * T herapy Visit * Electronic signature of Karen Sherman LCSW on 06/02/2025 at 11:42 AM CDT Sign off status: Pending Signatures: No Ad Hoc Signature Added * Provider: Keith SHERMAN LCSW Date: 0 01/30/2025 Generated for Justinoi jennifer/Rylan/eTransmitting on: 1 11:42 AM CDT
--- OUTSIDE RECORDS SUMMARY | 2025-02-07 09:45 | XMS_ITS ---
Author Organization [facility] Address [facility] [address] [place] [address] Care Team Providers Care Clinical Investigator Name Role Phone Simeon Gillette Primary Care Provider Nusrat Evans Unavailable [phone] REASON FOR VISIT 1 month f/u Social History Sex Assigned At : Social History Observation Description Sex Assigned At Female Encounters Encounter Location Date Provider Diagnosis [facility] [employer] [place] [address] [address] [place] [address] 02/07/2025 Nusrat Kaufman Plan Of Treatment No Information Progress Notes * Nicolasa LONGODOB:1970 (55 yo F)Acc No.[id number]:02/07/2025 Patient: Enio Nicolasa reinoso Provider: Caprice Kaufman :1970 A ge:54 Y S ex:Female Date:02/07/2025 Address:[address] [place], [place] Pcp:Simeon BARNES Subjective: * Chief Complaints: * 1 month f/u * Electronic signature of Joshua Kaufman on 06/02/2025 at 11:40 AM CDT Sign off status: Pending * Provider: Caprice Kaufman Date: 0 02/07/2025 Generated for Justinoi ng/Faxing/eTransmitting on: 1 11:40 AM CDT
--- NOTE | 2025-06-02 10:51 | EST_ITS ---
Patient Info Name: Nicolasa Longo Age: 55 years : 1970 Gender: Female Ht: 59 in Wt: 149 lbs BSA: 1.70 m2 HR: 67 bpm BP: 122 / 88 mmHg Heart Rhythm: Sinus Rhythm Technical Quality: Good Exam Date: 06/02/2025 10:51 AM Patient Status: O Admit Date: 06/02/2025 Exam Type: CA stress peter w NM A regadenoson stress test was performed. Staff Referring Physician: Matthew Rice Attending Provider: Matthew Rice Summary 1. 1. Negative lexiscan stress test for ischemic ST changes by ECG criteria. 2. 2. Stable hemodynamics throughout the test. 3. 3. Nuclear scan to follow and will be reported separately. Please correlate with it. History/Risk Factors Hypertension: Yes Protocol: LEXISCAN Stress ECG Details Stage: REST Duration (min): 3 min : 28 sec HR (bpm): 69 SBP (mmHg): 122 DBP (mmHg): 88 Stage: REST Duration (min): 5 min : 27 sec HR (bpm): 77 SBP (mmHg): 122 DBP (mmHg): 88 Stage: STAGE 1 Duration (min): 0 min : 20 sec HR (bpm): 85 SBP (mmHg): 122 DBP (mmHg): 88 Stage: RECOVERY Duration (min): 0 min : 39 sec HR (bpm): 111 SBP (mmHg): 122 DBP (mmHg): 88 Stage: RECOVERY Duration (min): 1 min : 39 sec HR (bpm): 126 SBP (mmHg): 118 DBP (mmHg): 46 Stage: RECOVERY Duration (min): 2 min : 39 sec HR (bpm): 111 SBP (mmHg): 118 DBP (mmHg): 46 Stage: RECOVERY Duration (min): 3 min : 39 sec HR (bpm): 104 SBP (mmHg): 133 DBP (mmHg): 95 Stage: RECOVERY Duration (min): 4 min : 39 sec HR (bpm): 93 SBP (mmHg): 133 DBP (mmHg): 95 Stage: RECOVERY Duration (min): 5 min : 39 sec HR (bpm): 96 SBP (mmHg): 126 DBP (mmHg): 94 Stage: RECOVERY Duration (min): 6 min : 39 sec HR (bpm): 97 SBP (mmHg): 186 DBP (mmHg): 92 Stage: RECOVERY Duration (min): 7 min : 39 sec HR (bpm): 99 SBP (mmHg): 184 DBP (mmHg): 39 Stage: RECOVERY Duration (min): 8 min : 16 sec HR (bpm): 99 SBP (mmHg): 134 DBP (mmHg): 64 Rest HR: 77 bpm Peak HR: 130 bpm Rest Sys BP: 122 mmHg Peak Sys BP: 186 mmHg Max Pred HR: 167 bpm % Max Pred HR: 78 % Target HR: 142 bpm Max RPP: 24,180 bpm*mmHg BP Response: Normal blood pressure response Termination Reason: Completed Protocol Cardiac Symptoms: None Total Time: 0 min : 20 sec Rest Vogel BP: 88 mmHg Peak Vogel BP: 92 mmHg Total Dose: 0.4 mg Resting ECG Normal sinus rhythm, anterior infarct, age indeterminate. Stress ECG No abnormal ST/T wave changes. Arrhythmias No arrhythmias were observed during the examination. Report Signatures
--- OUTSIDE RECORDS SUMMARY | 2025-06-02 11:40 | XMS_ITS | Encounter Summary ---
Author Organization [facility] Address [address] [place] [address] Care Team Providers Care Skiver Machine Operator Name Role Phone Abiodun Cifuentes MD Primary Care Provider [phone] Encounter Details Date Type Department Care Team (Late st Contact Info) Description 09/13/2022 Campus Connectrt Message Enc [facility] [address], [facility] [address] [place] [address] Fabiano Mckenzie MD [address] [place] [address] Visit Follow Up Social History Tobacco [...] Coronavirus/COVID-19? No / Unsure 09/13/2022 2:32 PM LAW ENFORCEMENT DIRECTOR documented as of this encounter Plan of Treatment Not on file documented as of this encounter Visit Diagnoses Not on filedocumented in this encounter Care Teams Skiver Machine Operator Relationship Specialty Start [place] [address] [place] [address] [place] [address] PCP - General FAMILY PRACTICE 08/24/22 documented as of this encounter
--- OUTSIDE RECORDS SUMMARY | 2025-06-02 11:40 | XMS_ITS | Clinical Summary ---
Author Organization [facility] Address [facility] [place] [address] Care Team Providers Care Nurse Liaison Name Role Phone Abiodun Cifuentes MD Primary Care Provider [phone] Allergies Active Allergy Reactions Criticality Noted Date [...] Comments Blood Pressure 157/114 06/24/2016 1:59 PM SENIOR DIRECTOR OF GLO[employer] TECHN[employer]Y [employer]UTIONS Pulse 76 06/24/2016 1:59 PM SENIOR DIRECTOR OF GLOBAL COMMERCIAL TECHN[employer]Y SOLUTIONS Temperature - - Respiratory Rate - - Oxygen Saturation - - Inhaled Oxygen Concentration - - Weight 77.1 kg (170 lb) 09/13/2022 2:34 PM SENIOR DIRECTOR OF [employer]BAL [employer]CH[employer] SOLUT[employer] Height 154.9 cm (5' 1) 09/13/2022 2:34 PM SENIOR DIRECTOR OF GLOBAL COMMERCIAL TECHN[employer] SOLUTIONS Body Mass Index 32.12 09/13/2022 2:34 PM SENIOR DIRECTOR OF GLOBAL [employer]CHN[employer]UTIONS Plan of Treatment Health Maintenance Due Date [...] 2025 04/23/2018, 04/30/2015, 03/18/2014, Additional history exists Hepatitis A Vaccines Aged Out 01/10/2014 No long er eligible based on patient's age to complete this topic Meningococcal B Vaccine Aged Out No l onger eligible based on patient's age to complete this topic Meningococcal Vaccine Aged Out No aicha sheyla eligible based on patient's age to complete this topic RSV Immunizations Under 20 Months Aged Out No longer eligible based on patient's age to complete this topic Insurance [facility] MEDICAID Care Teams Nurse Liaison Relationship Specialty Start Date End Date Abiodun Cifuentes MD [address] [place] [id number] PCP - General FAMILY PRACTICE 08/24/22
--- OUTSIDE RECORDS SUMMARY | 2025-06-02 11:40 | XMS_ITS | Encounter Summary ---
Author Organization [facility] Address [address] [place] [address] Care Team Providers Care Numberer And Wirer Name Role Phone Abiodun Cifuentes MD Primary Care Provider [phone] Encounter Details Date Type Department Care Team (Late st Contact Info) Description 01/19/2019 Abstract [facility] CONVERSION [address] [place] [address] , Generic Conversion, Social History Tobacco Use [...] on filedocumented in this encounter Care Teams Numberer And Wirer Relationship Specialty Start Date End Date Abiodun Cifuentes MD [address] [place] [id number] PCP - General FAMILY PRACTICE 08/24/22 documented as of this encounter
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
--- OUTSIDE RECORDS SUMMARY | 2025-06-02 11:42 | XMS_ITS | Clinical Summary ---
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 [address] [place] [address] Care Teams Fountain Jerk Relationship Specialty Start Date End Date [facility], External Provider [address] [place] [address] PCP - General 02/25/14
--- NOTE | 2025-06-02 13:17 | WPDCARIOSTRE ---
Nuclear Stress Test INDICATIONS Indications: Preop PROCEDURE Procedure Performed: Myocardial Perf Spect-Multi Procedure: Patient underwent a lexiscan stress test and immediately was injected wtih 31.0 mCi of cardiolyte. Multiple tomographic images were obtained. These are of good quality. There is no perfusion defect with stress imaging. A separate resting images were obtained after patient was injected with 10.2 mCi of cardiolyte. Multiple tomographic images were obtained. These are of good quality. There is no perfusion defect with rest imaging. CONCLUSION Conclusion: 1. Normal myocardial perfusion defect with stress or rest imaging. 2. No evidence of reversible ischemia. 3. Left ventriculogram demonstrates normal measured ejection fraction of 65% with no wall motion abnormalities. 4. TID score 1.04 is not elevated.
== END 2025-06-02 10:08 | disposition home or self-care (01) ==
LOC: CHSIMG 10:08
PROVIDERS: PCP Family Medicine; Visit Provider Family Medicine
DX: I10 Essential (primary) hypertension (principal); Z68.31 Body mass index [BMI] 31.0-31.9, adult
CPT/HCPCS: 78452; 93017; A9502; J2785

== ENCOUNTER 2025-07-14 12:43 | Outpatient (CLI) | payer OTHER, SELFPAY ==
--- OUTSIDE RECORDS SUMMARY | 2025-07-14 13:49 | XMS_ITS | Clinical Summary ---
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 Pulse 76 06/24/2016 1:59 PM HAND MICA PLATE LAYER Temperature - - Respiratory Rate - - Oxygen Saturation - - Inhaled Oxygen Concentration - - Weight 77.1 kg (170 lb) 09/13/2022 2:34 PM HAND MICA PLATE LAYER Height 154.9 cm (5' 1) 09/13/2022 2:34 PM HAND MICA PLATE LAYER Body Mass Index 32.12 09/13/2022 2:34 PM HAND MICA PLATE LAYER Plan of Treatment Health Maintenance Due Date [...] patient's age to complete this topic Insurance [facility] MEDICAID Care Teams Porcelain Enamel Sprayer Relationship Specialty Start Date End Date Abiodun Cifuentes MD [address] [facility] [place] [id number] PCP - General FAMILY PRACTICE 08/24/22
--- OUTSIDE RECORDS SUMMARY | 2025-07-14 13:49 | XMS_ITS | Encounter Summary ---
Author Organization [facility] Address [address] [place] [address] Care Team Providers Care Call Or Contact Centre Operator Name Role Phone Abiodun Cifuentes MD Primary Care Provider [phone] Encounter Details Date Type Department Care Team (Late st Contact Info) Description 01/19/2019 Abstract [facility] CONVERSION [address] [place] [address] , Generic Conversion, Social History Tobacco Use [...] on filedocumented in this encounter Care Teams Call Or Contact Centre Operator Relationship Specialty Start Date End Date Abiodun Cifuentes MD [address] [place] [id number] PCP - General FAMILY PRACTICE 08/24/22 documented as of this encounter
--- OUTSIDE RECORDS SUMMARY | 2025-07-14 13:49 | XMS_ITS | Encounter Summary ---
Author Organization [facility] Address [address] [place] [address] Care Team Providers Care Forest Officer Name Role Phone Abiodun Cifuentes MD Primary Care Provider Encounter Details Date Type Department Care Team (Late st Contact Info) Description 09/13/2022 [employer] Message Enc [facility] [address], [facility] [address] [place] [address] Fabiano Mckenzie MD [address] [place] [address] Visit Follow Up Social History Tobacco [...] Coronavirus/COVID-19? 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
--- OUTSIDE RECORDS SUMMARY | 2025-07-14 13:49 | XMS_ITS | Clinical Summary ---
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
[2025-07-14 13:52] LABS: Anion Gap 8 mmol/L (4-12); Blood Urea Nitrogen 16 mg/dL (7-17); Calcium 10.0 mg/dL (8.4-10.2); Carbon Dioxide 31 mmol/L (22-30); Chloride 100 mmol/L (98-107); Estimated Glomerular Filt Rate > 60; Glucose 96 mg/dL (65-110); Potassium 3.8 mmol/L (3.4-5.0); Sodium 139 mmol/L (137-145)
== END 2025-07-14 12:44 | disposition home or self-care (01) ==
LOC: ANHLAB 12:44
PROVIDERS: Anesthesiology; PCP Family Medicine; Visit Provider Obstetrics & Gynecology
DX: N92.0 Excessive and frequent menstruation with regular cycle (principal); T50.2X5A Adverse effect of carbonic-anhydrase inhibitors, benzothiadiazides and other diuretics, initial encounter
CPT/HCPCS: 36415; 80048; 86850; 86900; 86901

== ENCOUNTER 2025-07-16 00:31 | Day surgery (SDC) | payer OTHER, SELFPAY ==
--- OUTSIDE RECORDS SUMMARY | 2025-01-16 10:00 | XMS_ITS ---
Author Organization [facility] [employer] [facility] Address [facility] [address] [facility] [address] [place] [address] Care Team Providers Care High School Drafting Teacher Name Role Phone Simeon Gillette Primary Care Provider Nusrat Evans Unavailable [phone] Keara Sherman Unavailable [phone] REASON FOR VISIT Therapy Visit Social History Sex Assigned At : Social History Observation Description Sex Assigned At Female Encounters Encounter Location Date Provider Diagnosis [facility] [employer] [address] [address] 01/16/2025 Keara Sherman Plan Of Treatment No Information Progress Notes * Nicolasa LONGODOB:1970 (55 yo F)Acc No.[id number]:01/16/2025 Patient: Enio reinoosNicolasa Provider: Keith SHERMAN LCSW :1970 A ge:54 Y S ex:Female Date:01/16/2025 Address:[address] [place] [address] Pcp:Simeon BARNES Data: * Chief Complaints: * T herapy Visit * Electronic signature of Karen Sherman LCSW on 05/21/2025 at 01:48 AM CDT Sign off status: Pending Signatures: No Ad Hoc Signature Added * Provider: Keith SHERMAN LCSW Date: 0 01/16/2025 Generated for Saleem rodriguez/Rylan/eTransmitting on: 1 01:48 AM CDT
--- OUTSIDE RECORDS SUMMARY | 2025-01-23 11:00 | XMS_ITS ---
Author Organization [facility] [employer] [facility] Address [facility] [facility] [address] [place] [address] Care Team Providers Care Underground Conduit Installer Name Role Phone Simeon Gillette Primary Care Provider Nusrat Evans Unavailable [phone] Keara Sherman Unavailable [phone] REASON FOR VISIT Therapy Visit Social History Sex Assigned At : Social History Observation Description Sex Assigned At Female Encounters Encounter Location Date Provider Diagnosis [facility] [employer] [address] [place] [address] [address] [address] 01/23/2025 Keara Sherman Plan Of Treatment No Information Progress Notes * Nicolasa LONGODOB:1970 (55 yo F)Acc No.[id number]:01/23/2025 Patient: Enio Nicolasa reinoso Provider: Keith SHERMAN LCSW :1970 A ge:54 Y S ex:Female Date:01/23/2025 Address:[address] [place] [address] Pcp:Simeon BARNES Data: * Chief Complaints: * T herapy Visit * Electronic signature of Karen Sherman LCSW on 05/21/2025 at 01:51 AM CDT Sign off status: Pending Signatures: No Ad Hoc Signature Added * Provider: Keith SHERMAN LCSW Date: 0 01/23/2025 Generated for Saleem rodrgiuez/Rylan/eTransmitting on: 1 01:51 AM CDT
--- OUTSIDE RECORDS SUMMARY | 2025-01-30 11:00 | XMS_ITS ---
Author Organization [facility] [employer] [facility] Address [facility] [address] [facility] [address] [place] [address] Care Team Providers Care Rubbish Collection Supervisor Name Role Phone Simeon Gillette Primary Care Provider Nusrat Evans Unavailable [phone] Keara Sherman Unavailable [phone] REASON FOR VISIT Therapy Visit Social History Sex Assigned At : Social History Observation Description Sex Assigned At Female Encounters Encounter Location Date Provider Diagnosis [facility] [employer] [place] [address] [address] 01/30/2025 Keara Sherman Plan Of Treatment No Information Progress Notes * Nicolasa LONGODOB:1970 (55 yo F)Acc No.[id number]:01/30/2025 Patient: Enio edvinirvinNicolasa Provider: Keith SHERMAN LCSW :1970 A ge:54 Y S ex:Female Date:01/30/2025 Address:[address] [place] [address] Pcp:Simeon BARNES Data: * Chief Complaints: * T herapy Visit * Electronic signature of Karen Sherman LCSW on 05/21/2025 at 01:51 AM CDT Sign off status: Pending Signatures: No Ad Hoc Signature Added * Provider: Keith SHERMAN LCSW Date: 0 01/30/2025 Generated for Saleem rodriguez/Rylan/eTransmitting on: 1 01:51 AM CDT
[2025-05-14 11:39] VITALS: BMI 28.2
--- NOTE | 2025-05-14 11:47 | PC.NURSE ---
[facility] has started construction of its new state of the art ER which will open Spring 2026. With this, we anticipate parking may be a challenge for some our surgical patients and families. Parking spaces are limited but are available for all Surgical, obstetrics, and ER patients sharing this lot. If you arrive and find you are having a hard time finding a parking space, please note that we understand the challenges, please drive around the hospital and park near Hospital Entrance 1. When you enter this entrance, you can ask a volunteer to direct or take you back to the surgical waiting area to check in. We appreciate everyone?s understanding of these expected challenges while we build for your future. Report to the Outpatient Waiting Room, entrance under the green pavilion located off [address], at time _0830_ on date _[phone]_. Planned Procedure Time: _1030_.? Time changes happen often and if your time is changed the preop area will call you the afternoon before. - You and your visitor will be asked to self-screen and do not enter if you have any COVID symptoms. Please call surgeon if you need to reschedule. - A mask is optional within the hospital at this time. Patients may have clear liquids (water, carbonated beverages, clear teas, apple juice) until 3 hours prior to surgery with a maximum of 20 ounces. - No food from midnight until time of surgery and no smoking, or chewing tobacco (or any form of nicotine). No chewing gum, candy or mints. Take only the following medications with a SIP of water on the morning of surgery: ___Duloxetine, Bupropion and if needed Hydroxyzine and or Clonazepam.____ DO NOT STOP ANY OF YOUR OTHER PRESCRIPTION MEDICATIONS PRIOR TO SURGERY EXCEPT THE FOLLOWING Hold all vitamins and supplements for 3 days per anesthesiologist. Medications to discontinue per physician Date to take last dose Please no make-up, nail slovak, hairspray, perfume, deodorant, or body powder the day of surgery.? No jewelry (including any body piercings) or valuables the day of surgery, leave them at home.? Please take a shower or bath the night before, or the morning of, surgery with an antibacterial soap.? Wear comfortable, loose fitting clothing.? - Jewelry must be removed prior to entering the operating room.? Rings and piercings that are not removed may be cut off. - The hospital will not accept responsibility for valuables.? - Please leave all valuables, including medications, at home the day of surgery. If you are going home after surgery, a licensed transit mixer driver must drive you home.? - NO public transportation without another adult if you receive anesthesia. - We recommend that an adult stay with you for 24 hours following discharge. - We also recommend that you do not drive, make important decision, drink alcoholic beverages, or take any drugs that were not prescribed by your health care provider for at least 24 hours after your discharge time. Follow any additional instructions given to you from your surgeon. Telephone instructions given to __Penyolanda__and asked if any additional questions and then verbalized understanding. Patient advised to call surgeon office or pre surgery nurse liaison [phone] if any additional questions.
--- OUTSIDE RECORDS SUMMARY | 2025-05-21 01:48 | XMS_ITS | Encounter Summary ---
Author Organization [facility] Address [address] [place] [address] Care Team Providers Care Hand Tire Trimmer Name Role Phone Abiodun Cifuentes MD Primary Care Provider [phone] Encounter Details Date Type Department Care Team (Late st Contact Info) Description 01/19/2019 Abstract SFL CONVERSION [address] [place] [address] , Generic Conversion, Social History Tobacco Use [...] on filedocumented in this encounter Care Teams Hand Tire Trimmer Relationship Specialty Start Date End Date Abiodun Cifuentes MD [address] [place] [id number] PCP - General FAMILY PRACTICE 08/24/22 documented as of this encounter
--- OUTSIDE RECORDS SUMMARY | 2025-05-21 01:48 | XMS_ITS | Clinical Summary ---
Author Organization [facility] Address Formerly [facility] [place] [address] Care Team Providers Care Interventional Pain Physician Name Role Phone Abiodun Cifuentes MD Primary Care Provider [phone] Allergies Active Allergy Reactions Criticality Noted Date [...] Comments Blood Pressure 157/114 06/24/2016 1:59 PM DIRECTOR UTILIZATION MANAGEMENT Pulse 76 06/24/2016 1:59 PM DIRECTOR UTILIZATION MANAGEMENT Temperature - - Respiratory Rate - - Oxygen Saturation - - Inhaled Oxygen Concentration - - Weight 77.1 kg (170 lb) 09/13/2022 2:34 PM DIRECTOR UTILIZATION MANAGEMENT Height 154.9 cm (5' 1) 09/13/2022 2:34 PM DIRECTOR UTILIZATION MANAGEMENT Body Mass Index 32.12 09/13/2022 2:34 PM DIRECTOR UTILIZATION MANAGEMENT Plan of Treatment Health Maintenance Due Date [...] Screening with HPV 2002 Mammogram Screening 2012 Pneumococcal Vaccine: 50+ Years (1 of 1 - PCV) 2022 Zoster Vaccines (1 of 2) 2022 DTaP, Tdap and Td Vaccines (2 - Td or Tdap) 03/21/2023 03/21/2013 COVID-19 Vaccine ( season) 2025 12/13/2021, 09/01/2020, 08/11/2020 Influenza Adult (#1) 2025 04/23/2018, 04/30/2015, 03/18/2014, Additional history exists Meningococcal B Vaccine Aged Out No l onger eligible based on patient's age to complete this topic Meningococcal Vaccine Aged Out No aicha sheyla eligible based on patient's age to complete this topic RSV Immunizations Under 20 Months Aged Out No longer eligible based on patient's age to complete this topic Insurance [facility] MEDICAID Care Teams Interventional Pain Physician Relationship Specialty Start [place] [address] [place] [address] [place] [address] PCP - General FAMILY PRACTICE 08/24/22
--- OUTSIDE RECORDS SUMMARY | 2025-05-21 01:51 | XMS_ITS | Clinical Summary ---
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
[2025-07-09 13:46] VITALS: BMI 27.2
--- NOTE | 2025-07-09 14:00 | PC.NURSE ---
No changes per patient since last interview. RN gave new instructions to patient for day of surgery.
--- NOTE | 2025-07-09 14:01 | PC.NURSE ---
[facility] has started construction of its new state of the art ER which will open Spring 2026. With this, we anticipate parking may be a challenge for some our surgical patients and families. Parking spaces are limited but are available for all Surgical, obstetrics, and ER patients sharing this lot. If you arrive and find you are having a hard time finding a parking space, please note that we understand the challenges, please drive around the hospital and park near Hospital Entrance 1. When you enter this entrance, you can ask a volunteer to direct or take you back to the surgical waiting area to check in. We appreciate everyone?s understanding of these expected challenges while we build for your future. Report to the Outpatient Waiting Room, entrance under the green pavilion located off [address], at 0830 on 07-16-25. Planned Procedure Time: 1030.? Time changes happen often and if your time is changed the preop area will call you the afternoon before. - You and your visitor will be asked to self-screen and do not enter if you have any COVID symptoms. Please call surgeon if you need to reschedule. - A mask is optional within the hospital at this time. Patients may have clear liquids (water, carbonated beverages, clear teas, apple juice) until 3 hours prior to surgery with a maximum of 20 ounces. (0730) - No food from midnight until time of surgery and no smoking, or chewing tobacco (or any form of nicotine). No chewing gum, candy or mints. - Infants may have breast milk until 4 hours before surgery, formula 6 hours prior to surgery. - Children will be allowed to drink immediately following surgery.? If applicable, please bring a bottle or sippy cup to assist with drinking. Juice, water, soda, and popsicles are readily available.? For infants on formula, please bring formula the day of surgery.? Pacifiers are allowed. Take only the following medications with a SIP of water on the morning of surgery: bupropion, duloxetine, clonazepam if needed DO NOT STOP ANY OF YOUR OTHER PRESCRIPTION MEDICATIONS PRIOR TO SURGERY EXCEPT THE FOLLOWING Hold all vitamins and supplements for 3 days per anesthesiologist. Medications to discontinue per physician: Andrew (7 days at least per Dr. Álvarez) Date to take last dose: 07-04-25 Please no make-up, nail citizen of [place], hairspray, perfume, deodorant, or body powder the day of surgery.? No jewelry (including any body piercings) or valuables the day of surgery, leave them at home.? Please take a shower or bath the night before, or the morning of, surgery with an antibacterial soap.? Wear comfortable, loose fitting clothing.? Children are encouraged to wear pajamas. - Jewelry must be removed prior to entering the operating room.? Rings and piercings that are not removed may be cut off. - The hospital will not accept responsibility for valuables.? - Please leave all valuables, including medications, at home the day of surgery. If you are going home after surgery, a licensed cpr ambulance driver must drive you home.? - NO public transportation without another adult if you receive anesthesia. - We recommend that an adult stay with you for 24 hours following discharge. - We also recommend that you do not drive, make important decision, drink alcoholic beverages, or take any drugs that were not prescribed by your health care provider for at least 24 hours after your discharge time. For Pediatric surgeries, we recommend two adults accompany the child home. Follow any additional instructions given to you from your surgeon. Telephone instructions given to Nicolasa Longo and asked if any additional questions and then verbalized understanding. Patient advised to call surgeon office or pre surgery nurse liaison [phone] if any additional questions.
[2025-07-16] VITALS (12 sets, daily range): BP systolic 101–137; BP diastolic 70–96; PULSE 60–85; RESP 8–17; TEMP 36.2–36.6; O2SAT 96–100; BMI 27.8
--- NOTE | 2025-07-16 07:33 | PM.IMHP2 ---
H&P: HPI History of Present Illness Date/Time: 07/16/25 07:33 Chief Complaint: Menorrhagia Narrative: She states she has a long history of heavy periods. She uses a pad super and tampon and changes every 2 hours for 2 days. Had this flow for a while. She has night sweats. She does have soiling. Ultrasound was normal. It did show calcification in the right ovary most likely benign left ovary not visualized. She has had to get iron infusions. She was feeling very fatigued during her. The iron infusion as help she has started to feel the fatigue again during her. Her last hemoglobin was 13. She has had an endometrial biopsy which was benign she also had a colposcopy which was benign. She has been given option to include endometrial ablation, IUD, progesterone only hormonal therapy, hysterectomy. She was informed that a hysterectomy is surgery to remove your uterus and cervix and salpingectomy bilateral will remove both fallopian tubes and she has opted for removal of both ovaries. Discussed that during robotic surgery, it is a minimally invasive hysterectomy, likely to have less pain and lose less blood than is typical with open abdominal surgery. Will usually resume normal daily activities more quickly than after open surgery.Although robotic hysterectomy is generally safe, any surgery has risks. Risks of robotic hysterectomy include: Heavy bleeding Blood clots in the legs or lungs Infection Damage to the bladder and other nearby organs Adverse reaction to anesthetic. Discussed the procedure in detail. She may be able to go home the same day after 4-6 hour or may need to stay in the hospital, usually one night is typical. She will be given medication for pain. She can expect some vaginal bleeding for a few days to weeks after the hysterectomy. Recovery after robotic hysterectomy is shorter and less painful than after an abdominal hysterectomy. A full recovery might take several months. Discussed not to lift anything heavy ? more than 20 pounds and have will be on pelvic rest for 6-8 weeks. She will be in menopause with removal of ovaries, informed of risk benefits of keeping versus removing ovaries. She opted for removal of ovaries. She is aware of possible increase in menopausal symptoms. She has opted for definitive treatment with hysterectomy. She has had normal cardiac evaluation. Review of Systems Review of Systems: All systems reviewed & are unremarkable except as noted in HPI and below Cardiovascular: Cardiovascular: Reports no additional cardiovascular complaints, Denies chest pain and Denies dyspnea Respiratory: Respiratory: Reports no additional respiratory complaints and Denies dyspnea Gastrointestinal: Gastrointestinal: Reports abdominal pain, Denies change in bowel habits, Denies diarrhea, Denies nausea and Denies vomiting Genitourinary: Genitourinary: Reports pelvic pain Musculoskeletal: Musculoskeletal: Reports back pain Integumentary/Breasts: Skin/Breast: Reports system reviewed and no additional complaints, except as docu Neurologic: Reports system reviewed and no additional complaints, except as documented PMFSH Past Medical History Medical History Anxiety Herpes Hypertension Anemia Surgical History Surgical History [place] teeth removed H/O tubal ligation H/O gastric sleeve 2018 History of cholecystectomy 2015, gallstone history Family History Family History Father Diabetes mellitus CHF (congestive heart failure) Hypertension Grandparent Diabetes mellitus Hypertension Other , due breast cancer Breast cancer Other , lung cancer, no smoking history Lung cancer Father , CHF Diabetes mellitus HLD (hyperlipidemia) Heart disease CHF (congestive heart failure) Other , throat cancer Throat cancer Carcinoma of colon Skin cancer Social History Social History Smoking status: Never smoker Alcohol intake: current Drinks per week: 4 Substance use: never Substance use type: does not use Living arrangements: with family Spiritual care concerns: No Meds Home Medications and Allergies Home Medications ?Medication ?Instructions ?Recorded ?Confirmed ?Type duloxetine 30 mg capsule,delayed 30 mg PO DAILY #30 caps 11/14/24 05/14/25 Rx release semaglutide (weight loss) 0.25 0.25 mg (0.5 mL) subcut WEEKLY #2 11/28/24 07/09/25 Rx mg/0.5 mL subcutaneous pen mL injector ([facility]arcus) bupropion HCl 300 mg 24 hr tablet, 300 mg PO DAILY #90 tabs 03/11/25 07/16/25 Rx extended release prazosin 2 mg capsule 2 mg PO QHS #90 caps 03/11/25 05/14/25 Rx chlorthalidone 25 mg tablet See Rx Instructions .Route 04/29/25 05/14/25 Rx .COMPLEX #30 tabs clonazepam 0.5 mg tablet 0.5 mg PO BID PRN anxiety #30 tabs 06/09/25 07/09/25 Rx hydroxyzine HCl 10 mg tablet See Rx Instructions .Route 07/04/25 07/09/25 Rx .COMPLEX #30 tabs Allergies Allergy/AdvReac Type Severity Reaction Status Date / Time nitrofurantoin (From Allergy Intermediate Rash Verified 07/16/25 09:07 Macrobid) Exam Const: Orientation/consciousness: oriented to person and oriented to place HENMT: Head: normal to inspection Eyes: General: appearance normal, both eyes and all related structures Resp: Effort & Inspection: normal respiratory effort Auscultation: clear to auscultation bilaterally Cardio: Rate: regular rate Rhythm: regular rhythm GI: Inspection: normal to inspection GI Palp: No Rebound tenderness present Neuro: General: oriented to person and oriented to place Cognition (Neuro): normal cognition Extrem: General: normal to inspection Psych: Appearance: grossly normal and well kempt Assessment and Plan Assessment and plan (1) Menorrhagia: Code(s): N92.0 - Excessive and frequent menstruation with regular cycle Status: Acute Assessment and Plan: Questions answered. She has agreed to proceed with laparoscopic laparoscopic robotic assisted total vaginal hysterectomy with bilateral salpingectomy and bilateral oophorectomy.
[2025-07-16] MEDS: LACTATED RINGERS 1,000 ML 30 ML IV CONT ×2 (09:00→11:48)
[2025-07-16] MEDS: ACETAMINOPHEN 500 MG TABLET 1000 MG PO ×3 (09:05→20:41)
[2025-07-16] MEDS: KETOROLAC 15 MG/ML VIAL (*BKC) IV PUSH (09:05)
[2025-07-16 09:35] LABS: BEDSIDEPREGUCG Negative (Negative)
--- NOTE | 2025-07-16 09:47 | WPDHPUPDATE1 ---
History and Physical Update Update Date/Time: 07/16/25 09:47 History and Physical has been reviewed, including an updated exam of the patient. There are NO changes in the patient's condition. Risks, benefits, and alternatives have been discussed and questions answered. Patient agrees to proceed with procedure.
--- NOTE | 2025-07-16 10:02 | P.PNAN_ITS ---
Anes - Initial Pre Proc Eval Procedure: Operation Date: 07/16/25 10:30 Proposed Procedures p Robotic Assisted Total Vaginal Hysterectomy with Bilateral Salpingectomy, Possible Bilateral Oophorectomy - Rodger Álvarez MD Date/Time: 07/16/25 10:02 Surgeon: Rodger Álvarez MD Pre Op Diagnosis: Menorrhagia, Anemia Patient Data Age: 55 Gender: F Height: 1.55 m Weight: 67 kg Last Vital Signs Temp 36.3 C L 07/16/25 08:20 Pulse 77 07/16/25 08:20 Resp 14 07/16/25 08:20 BP 125/96 H 07/16/25 08:20 Pulse Ox 98 07/16/25 08:20 O2 Del Method Room Air 07/16/25 08:20 Allergies Allergy/AdvReac Type Severity Reaction Status Date / Time nitrofurantoin (From Allergy Intermediate Rash Verified 07/16/25 09:07 Macrobid) Home Medications ?Medication ?Instructions ?Recorded ?Confirmed ?Type duloxetine 30 mg capsule,delayed 30 mg PO DAILY #30 ca ps 11/14/24 05/14/25 Rx release semaglutide (weight loss) 0.25 0.25 mg (0.5 mL) subcut WEEKLY #2 11/28/24 07/09/25 Rx mg/0.5 mL subcutaneous pen mL injector (Wegenevievevy) bupropion HCl 300 mg 24 hr tablet, 300 mg PO DAILY #90 tabs 03/11/25 07/16/25 Rx extended release prazosin 2 mg capsule 2 mg PO QHS #90 caps 5 05/14/25 Rx chlorthalidone 25 mg tablet See Rx Instructions .Route 04/29/25 05/14/25 Rx .COMPLEX #30 tabs clonazepam 0.5 mg tablet 0.5 mg PO BID PRN anxiety #3 0 tabs 06/09/25 07/09/25 Rx hydroxyzine HCl 10 mg tablet See Rx Instructions .Rout e 07/04/25 07/09/25 Rx .COMPLEX #30 tabs Laboratory Tests 07/16/25 08:20 POC Urine HCG, Qual Negative (Negative) Patient hx anesthesia problems: none Family hx anesthesia problems: none Results Review: All pre-operative results and documents have been reviewed as part of the pre- operative evaluation. [facility] Past Medical History Medical History Anxiety Herpes Hypertension Anemia Surgical History Surgical History [place] teeth removed H/O tubal ligation H/O gastric sleeve 2018 History of cholecystectomy 2015, gallstone history Family History Family History Father Diabetes mellitus CHF (congestive heart failure) Hypertension Grandparent Diabetes mellitus Hypertension Other , due breast cancer Breast cancer Other , lung cancer, no smoking history Lung cancer Father , CHF Diabetes mellitus HLD (hyperlipidemia) Heart disease CHF (congestive heart failure) Other , throat cancer Throat cancer Carcinoma of colon Skin cancer Social History Social History Smoking status: Never smoker Alcohol intake: current Drinks per week: 4 Substance use: never Substance use type: does not use Living arrangements: with family Spiritual care concerns: No Anes - Eval Final PreProcedure Day of Procedure 07/16/25 10:02 Patient weight: normal Heart: regular rate and rhythm Lungs: clear to auscultation Airway: Mallampati scale class 1 Neurological: alert and oriented Last oral intake: >/= 8 hours ASA classification: II Emergent: no Anesthetic plan: proceed Anesthesia type and monitoring: general ETT and standard monitoring Results Review: All pre-operative results and documents have been reviewed as part of the pre- operative evaluation. Informed Consent: The patient's anesthetic plan and its attendant risks and benefits were discussed with the patient/family/POA. Questions were solicited and answers p rovided to the satisfaction of the patient/family/POA.
[2025-07-16] MEDS: metroNIDAZOLE 500 MG/ISO 100ML 500 MG/100 ML BAG 100 MG IVPB (10:08)
[2025-07-16] MEDS: ceFAZolin 2 GM in SODIUM CHLORIDE 0.9% IV 50 ML 100 ML IVPB (10:08)
--- NOTE | 2025-07-16 11:06 | S_PTH ---
PATIENT: Nicolasa Longo LOC: [facility] U#:[id number] AGE/SX: 55/F ROOM: RE07/16/[address]: Rodger Álvarez MD : 1970 BED: DIS: 07/17/2025 SPEC #: [id number] RECD: 07/16/25 11:55 STATUS: LV REQ #: [id number] BISI: 07/16/25 11:[address]: Rodger Álvarez DEPT: [facility] Surgical RECD BY: Edilia Watkins ENTERED: 07/16/25 11:55 SP TYPE: Surgical OTHR DR: Matthew Rice DO Tissues: A - Uterus Procedures: Hematoxylin and Eosin Stain Gross and Microscopic Level 5
--- NOTE | 2025-07-16 11:30 | W.PM.PROC2 ---
Procedure Note - Detailed Date of Procedure 07/16/25 Pre-op Diagnosis Menorrhagia, Anemia Post-op Diagnosis Same Procedure Performed Laparoscopic robotic assisted total vaginal hysterectomy with bilateral salpingo-oophorectomy Surgeon Rodger Álvarez MD Change Management Consultant Saritha Anesthesia General Indications menorrhagia Findings uterus normal size fallopian tubes with clips consistent with prior tubal ligation, left ovary with 3 cm simple cyst clear fluid normal right ovary Description of Procedure After informed consent was obtained she was taken to the operating room and general endotracheal anesthesia was administered. She was placed in low lithotomy position. An exam under anesthesia was performed. Uterus normal size, no adnexal masses palpated. She was and prepped and draped in sterile fashion. Aguero catheter placed in bladder. Attention was turned to the vagina speculum was inserted. Single-tooth tenaculum placed on anterior lip of the cervix the uterus sounded to 9cm. The cervix was dilated to a 8 [place] dilator. A size 8 uterine manipulator was inserted and secured. A size 3.0 colp cup was secured in the vagina. Then attention was turned to the abdomen with new sterile gloves. .5% marcaine injected subcutaneously. An incision was made horizontal 2 cm above the umbilicus. a Veress needle was inserted confirmation into the abdomen obtained with normal peritoneal pressures. A Pneumoperitoneum of 15 mm per mercury was obtained. No abdominal or pelvic adhesions noted. A small incision was made approximately 6 cm lateral to the port on the left side of the port. A size 8mm robotic port was inserted under laparoscopic visualization into the abdomen on the left side. This was also done on the right side and superior medial for the judicial administrative assistant port. Patient was placed in Trendelenburg position the robotic arms were attached. Attention was turned to the surgery consult. The right round ligament was ligated. The anterior leaf of the broad ligament was dissected anteriorly and the vesicouterine peritoneum was dissected off the bladder. The right infundibulopelvic ligament was ligated. The a posterior leaf of the broad ligament was further dissected. The ascending uterine vessels on the right were cauterized. The uterine vessels were ligated. Attention was turned to the left round ligament which was ligated and the anterior leaf of the broad ligament was dissected anteriorly. The rest of the vesicouterine peritoneum was dissected off of the uterus. Once the bladder was dissected below the colp cup then the posterior leaf of the broad ligament was further dissected. The infundibulopelvic ligament was ligated. The ascending uterine vessels were ligated. The uterine arteries were ligated. The cardinal ligaments were ligated. This was done on both sides. An incision was made anterior colpotomy incision was made and this was carried around until the cervix was removed from the vagina. The uterus and cervix were removed through the vagina. The vaginal cuff was closed in a running fashion with 0 V lock suture x2. Hemostasis was noted. The pelvis was irrigated. Hemostasis noted. Hemoderm was applied in the pelvis. The patient was taken out of Trendelenburg position. The pneumoperitoneum was released and the ports were removed. The skin incisions were closed with 4 O Vicryl and Dermabond. The patient was extubated in operating room. The sponge count was correct x2. Patient tolerated procedure well and was taken to recovery in stable condition. Estimated Blood Loss 20 Drains No Packing No Pathology Yes ( uterus with cervix and right and left fallopian tubes and right and left ovary) Complications No immediate complications Condition Stable Disposition PACU [facility] Billing Surgery - Charge Forward: Surgery Billing
[2025-07-16] MEDS: fentaNYL CITRATE INJ (*CRX) 100 MCG/2 ML VIAL 25 MCG IV PUSH ×6 (11:56→12:34)
--- NOTE | 2025-07-16 13:25 | OBPPTRN ---
Patient transferred to post room #283 via bed. Support person present. Patient oriented to unit, room, information board, and admission packet. Patient verbalizes understanding.
[2025-07-16] MEDS: oxyCODONE HCL (*CRX) 5 MG TAB IR PO ×2 (13:48→19:35)
[2025-07-16] MEDS: SODIUM CHLORIDE 0.9% IV 1,000 ML 125 ML IV CONT (14:46)
[2025-07-16] MEDS: KETOROLAC 30 MG/ML VIAL (*BKC) IV PUSH ×2 (14:46→20:41)
[2025-07-16] MEDS: SIMETHICONE 80 MG TAB.CHEW PO (17:03)
[2025-07-16] MEDS: DOCUSATE SODIUM 100 MG CAPSULE PO (17:03)
[2025-07-16] MEDS: PRAZOSIN HCL 1 MG CAPSULE 2 MG PO (20:41)
[2025-07-17] MEDS: KETOROLAC 30 MG/ML VIAL (*BKC) IV PUSH (03:43)
[2025-07-17] MEDS: ACETAMINOPHEN 500 MG TABLET 1000 MG PO (03:43)
[2025-07-17 03:45] VITALS: BP 125/77; PULSE 69; RESP 16; TEMP 36.6; O2SAT 96
[2025-07-17 03:50] VITALS: PULSE 69; RESP 16; O2SAT 96
[2025-07-17 07:40] VITALS: BP 110/72; PULSE 72; RESP 18; TEMP 36.6; O2SAT 97
[2025-07-17] MEDS: SIMETHICONE 80 MG TAB.CHEW PO (07:51)
[2025-07-17] MEDS: buPROPion HCL XL (24 HR) 150 MG TABCR 300 MG PO (07:52)
[2025-07-17] MEDS: CHLORTHALIDONE 25 MG TABLET PO (07:52)
[2025-07-17] MEDS: DOCUSATE SODIUM 100 MG CAPSULE PO (07:52)
[2025-07-17] MEDS: IBUPROFEN 600 MG TABLET PO (10:34)
--- NOTE | 2025-07-17 10:59 | P.DS_ITS ---
DS: Admitting Diagnosis Discharge Date 07/17/25 Admitting Diagnosis Menorrhagia. Planned hysterectomy. DS: Discharge Diagnosis Discharge Diagnosis (1) Menorrhagia: Code(s): N92.0 - Excessive and frequent menstruation with regular cycle Status: Acute (2) Hysterectomy planned: Status: Acute DS: Summary Hospital Course Reason for hospitalization: Hysterectomy Hospital Course: She was admitted for planned hysterectomy. She had an uncomplicated hysterectomy. She did well post operatively. She had adequate pain control and was tolerating regular diet and positive flatus and ambulating well. She was discharge to home on post op day 1. Discharge instructions reviewed. Time Spent with Patient Time attestation: Total time spent providing and/or coordinating discharge services: DS: Data Data Completed and Pending Pending studies at discharge: Pending at discharge 07/16/25 11:06 Surgical [PTH] Routine Discharge Plan Discharge Patient Disposition: Home Patient Instructions: Laparoscopic Hysterectomy (DC) Patient Language: Divehi Stand Alone Forms: General Discharge Instructions Discharge Medications: New ibuprofen 600 mg Tablet 600 mg PO Q6HR Qty: 30 0RF oxycodone 5 mg Tablet 5 mg PO Q4H PRN (Reason: Pain Rated 4-6) Qty: 20 0RF No Action duloxetine 30 mg capsule,delayed release(DR/EC) 30 mg PO DAILY Qty: 30 0RF Wegovy 0.25 mg/0.5 mL pen injector 0.25 mg subcut WEEKLY Qty: 2 0RF Patient Comments: Fridays for weight loss. Rx Instructions: *SAMPLE* LOT: [id number] EXP: 12/11/2025 1 BOX GIVEN 4 PENS bupropion HCl 300 mg tablet extended release 24 hr 300 mg PO DAILY Qty: 90 0RF prazosin 2 mg capsule 2 mg PO QHS Qty: 90 0RF chlorthalidone 25 mg tablet See Rx Instructions .ROUTE .COMPLEX Qty: 30 3RF Dose Instruction: TAKE ONE TABLET BY MOUTH DAILY Rx Instructions: TAKE ONE TABLET BY MOUTH DAILY clonazepam 0.5 mg tablet 0.5 mg PO BID PRN (Reason: anxiety) Qty: 30 0RF hydroxyzine HCl 10 mg tablet See Rx Instructions .ROUTE .COMPLEX Qty: 30 2RF Dose Instruction: TAKE ONE TABLET BY MOUTH THREE TIMES A DAY NEEDED FOR ANXIETY Rx Instructions: TAKE ONE TABLET BY MOUTH THREE TIMES A DAY NEEDED FOR ANXIETY
== END 2025-07-17 11:14 | disposition home or self-care (01) ==
LOC: ANHSURGERY 08:16 → ANHOB2 13:19
PROVIDERS: Anesthesiology; PCP Family Medicine; Visit Provider Obstetrics & Gynecology
PROC: (CPT 58552; principal; 2025-07-16 10:30)
DX: N92.0 Excessive and frequent menstruation with regular cycle (principal); D64.9 Anemia, unspecified; N83.292 Other ovarian cyst, left side; N83.8 Other noninflammatory disorders of ovary, fallopian tube and broad ligament; D25.9 Leiomyoma of uterus, unspecified
CPT/HCPCS: 58552; S2900; 88307; 99199; J0690; A9270; J1100; J1171; J1596; J1836; J1885; J2003; J2250; J2405; J2704; J3010; J7030; J7120